=== PATIENT | female | born 2000 | race Hispanic/Latino ===

== ENCOUNTER 2018-07-08 18:08 | Emergency (ER) | payer SELFPAY ==
--- NOTE | 2018-07-08 19:38 | RAD ---
RIGHT HAND THREE VIEWS: 07/08/18 HISTORY: Pain. Injury. COMPARISON: None. FINDINGS: No fracture. No cortical irregularity or periosteal reaction. Joint spaces are preserved. IMPRESSION: Unremarkable right hand three views. POS: [facility]
--- NOTE | 2018-07-08 19:40 | RAD ---
RIGHT WRIST THREE VIEWS: 07/08/18 HISTORY: Pain. Injury. FINDINGS: Intercarpal and radiocarpal joint spaces are preserved. No fracture. IMPRESSION: No fracture. If there is pain or point tenderness, immobilization and followup imaging in 7 to 10 day s. POS: [facility]
[2018-07-08] MEDS ORDERED: Ketorolac Tromethamine 30 MG/ML VIAL ONE (20:16)
== END 2018-07-08 20:30 | disposition home or self-care (01) ==
LOC: ERS 18:08
DX: S60.312A Abrasion of left thumb, initial encounter (principal); S40.812A Abrasion of left upper arm, initial encounter; S60.512A Abrasion of left hand, initial encounter; V49.9XXA Car occupant (driver) (passenger) injured in unspecified traffic accident, initial encounter
CPT/HCPCS: 96372; J1885